=== PATIENT | male | born 1970 | race Caucasian/White ===

== ENCOUNTER 2020-04-18 18:03 | Emergency (ER) | payer OTHER ==
[~2020-04-18] VITALS: Ht 190.5 cm; Wt 119.5 kg
[~2020-04-18 18:03] MED LIST: MULT-208 PO; OXYC1TAB15 PO
[2020-04-18] MEDS ORDERED: IBUPROFEN 200 MG TABLET. PO ONE (19:30)
[2020-04-18] MEDS ORDERED: CYCLOBENZAPRINE 10 MG TABLET. PO ONE (19:30)
[2020-04-18] MEDS ORDERED: DIPH,PERTUSS(ACELL),TET VAC/PF 0.5 ML SYRINGE. VAX IM ONE (19:30)
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
[2020-04-18 20:57] VITALS: BP 162/91
[2020-04-18] MEDS ORDERED: CYCL10TA2 PO (20:59)
[2020-04-18] MEDS ORDERED: IBUP-1007 PO (20:59)
== END 2020-04-18 21:15 | disposition home or self-care (01) ==
LOC: ER 18:03
DX: S60.032A Contusion of left middle finger without damage to nail, initial encounter (principal); S60.512A Abrasion of left hand, initial encounter; M25.562 Pain in left knee; M54.6 Pain in thoracic spine; M54.5 Low back pain; M25.561 Pain in right knee; M25.512 Pain in left shoulder; V49.49XA Driver injured in collision with other motor vehicles in traffic accident, initial encounter; Y92.488 Other paved roadways as the place of occurrence of the external cause; Y93.89 Activity, other specified; Y99.8 Other external cause status
CPT/HCPCS: 72072; 72110; 73000; 73130; 73564; 90471; 90715; 99285-25